=== PATIENT | male | born 1940 | race Caucasian/White ===

== ENCOUNTER 2020-11-29 12:07 | Emergency (ER) | payer MEDICARE ==
[~2020-11-29] VITALS: Ht 167.6 cm; Wt 78.5 kg
[~2020-11-29 12:07] MED LIST: AMLODIPINE BESYL5 MG PO; DOXYCYCLINE HY100 MG PO; LISINOPRIL20 MG PO; LISINOPRIL5 MG PO; SULFASALAZINE500 MG PO; TRIAMTERENE-HC1 EAC1 PO; XARELTO15 MG PO
[2020-11-29] MEDS ORDERED: LOSARTAN POTASS25 MG PO (12:27)
[2020-11-29] MEDS ORDERED: CIPRO500 MG PO (15:33)
[2020-11-29] MEDS ORDERED: FLAGYL500 MG PO (15:33)
== END 2020-11-29 15:53 | disposition home or self-care (01) ==
LOC: ED 12:07
DX: K57.32 Diverticulitis of large intestine without perforation or abscess without bleeding (principal); I10 Essential (primary) hypertension; Z79.899 Other long term (current) drug therapy
CPT/HCPCS: 51798; 74177; 80053; 81001; 85025; 99284-25; Q9967

== ENCOUNTER 2023-11-05 11:09 | Emergency (ER) | payer MEDICARE ==
[~2023-11-05] VITALS: Ht 167.6 cm; Wt 78.5 kg
[~2023-11-05 11:09] MED LIST changes: +CIPRO500 MG PO; +FLAGYL500 MG PO; +LOSARTAN POTASS25 MG PO
[2023-11-05] MEDS ORDERED: FINASTERIDE5 MG PO (11:22)
[2023-11-05 12:26] LABS: HEMOGLOBIN 14.6 g/dL (12.0-18.0)
[2023-11-05 12:30] LABS: BASOPHILS 0.4 % (0-2); EOSINOPHILS 1.4 % (0-6); LYMPHOCYTES 23.3 % (24-44); MCH 32.5 (27-36); MCHC 33.1 g/dl (30-36); MCV 98.3 fl (81-99); MONOCYTES 14.2 % (0-12); NEUTROPHILS 60.7 % (39-80); PLATELET COUNT 225 K/uL (140-440); RBC 4.48 M/ul (4.3-5.7); RDW 13.2 (10.5-15.0)
[2023-11-05 12:40] LABS: ALBUMIN 3.8 g/dL (3.4-5.0); ALBUMIN/GLOBULIN RATIO 1.06 (1.1-2.4); ANION GAP 10.7 (7-21); BILIRUBIN, TOTAL 0.3 ng/dL (0.2-1.0); BUN/CREATININE RATIO 16.48 (6.0-28.6); CALCIUM 8.7 mg/dL (8.5-10.1); CREATININE, SERUM 0.91 mg/dL (0.70-1.30); POTASSIUM 3.7 mmol/L (3.5-5.1); PROTEIN, TOTAL 7.4 g/dL (6.4-8.2)
[2023-11-05 13:52] VITALS: BP 160/97
== END 2023-11-05 13:52 | disposition home or self-care (01) ==
LOC: ED 11:09
PROVIDERS: Emergency Medicine
DX: R42 Dizziness and giddiness (principal); I10 Essential (primary) hypertension
CPT/HCPCS: 36415; 70450; 80053; 85025; 99284-25